=== PATIENT | female | born 1990 | race Caucasian/White ===

== ENCOUNTER → 2021-01-13 | Outpatient (CLI) | payer BC ==
[~2021-01-13] MED LIST: ALBU90OI INH; AZIT250 PO; Aerochamber1 EACH INH; BENZ100A PO; CEPH500 PO; CIPR500 PO; DULO30; ESCI10; ESCI10 PO; FEXPSEER PO; HYDACE5 PO; IBUP600 PO; IRON150C PO; LAMO50 PO; MULVITMINE PO; Norco 5-325 Ta1 EACH PO; PROM25 PO; RXPHEN200 PO; STOMUL; TOBR.3OPSO OD; TOPI25; TRAZ50 PO; VENL75ER PO; VIBRID
== END | disposition home or self-care (01) ==
LOC: LAB SHORT 14:00
DX: R05.9 Cough, unspecified (principal)
CPT/HCPCS: 85379

== ENCOUNTER → 2021-06-08 | Outpatient (CLI) | payer BC ==
[2021-06-11 00:08] LABS: CHLAMYDIA TRACHOMATIS, NAA Negative (Negative)
== END | disposition home or self-care (01) ==
LOC: LAB 15:15 → LAB SHORT 15:15
PROVIDERS: Physician Assistant
DX: R10.2 Pelvic and perineal pain (principal)
CPT/HCPCS: 87070; 87205; 87491; 87591